=== PATIENT | female | born 1970 | race American Indian/Alaskan Native ===

== ENCOUNTER 2020-04-05 22:53 | Emergency (ER) | payer SELFPAY ==
[2020-04-05] MEDS ORDERED: ASPIRIN 325 MG TAB PO ONE (23:42)
[2020-04-06 00:56] LABS: Basophils % (Auto) 0.8 % (0.0-1.8); Eosinophils # (Auto) 0.3 K/mm3 (0.0-0.4); Eosinophils % (Auto) 4.6 % (0.0-4.3); Hematocrit 34.2 % (30.3-42.9); Hemoglobin 11.2 gm/dl (10.1-14.3); Lymphocytes # (Auto) 2.4 K/mm3 (1.2-5.4); Mean Corpuscular HGB Conc 33 % (30-34); Mean Corpuscular Volume 83 fl (79-97); Monocytes # (Auto) 0.6 K/mm3 (0.0-0.8); Monocytes % (Auto) 9.6 % (0.0-7.3); Platelet Count 183 K/mm3 (140-440); Red Blood Count 4.12 M/mm3 (3.65-5.03); Red Cell Distribution Width 16.9 % (13.2-15.2)
[2020-04-06 01:11] LABS: Blood Urea Nitrogen 11 mg/dL (7-17); Calcium 9.6 mg/dL (8.4-10.2); Hemolysis Index 2
[2020-04-06 01:19] LABS: BUN/Creatinine Ratio 16
--- NOTE | 2020-04-06 07:59 | XRay Report ---
CHEST 1 VIEW INDICATION: Chest Pain. COMPARISON: None FINDINGS: Support devices: None. Heart: Within normal limits. Lungs/Pleura: No acute air space or interstitial disease. Additional findings: None. IMPRESSION: No acute findings. Signer Name: Cezar Palomo Jr, MD Signed: 04/06/2020 7:55 AM Workstation Name: [id number]
--- NOTE | 2020-04-06 10:03 | Emergency Department Report ---
ED Chest Pain HPI - General Chief Complaint: Chest Pain Stated Complaint: CHEST PAIN AND NEED TO SEE A PSYCH DOCTOR Time Seen by Provider: 04/06/20 09:12 Source: patient Mode of arrival: Ambulatory Limitations: No Limitations - History of Present Illness Initial Comments: This is a 50-year-old -[place] female who presents to the emergency department with 2 different complaints. First, the patient complains of some midsternal and left-sided chest pain that has been going on since last night at around 7:30 PM. The midsternal pain is a burning sensation, and the left-sided pain, around the breast, is more of a stabbing pain. It is associated with some nausea, but the patient denies any fever, vomiting, back pain, shortness of breath, diaphoresis. She has not taken anything for symptoms prior to presentation. The patient says that she was just recently admitted and discharged from [facility] for multiple different issues including some shortness of breath, chest discomfort, weakness. During that work-up the patient was found to allegedly have a pulmonary embolism. The patient says that she is on a blood thinner "a pink pill", and that she has been compliant but cannot remember the name. She has a past medica l history of peptic ulcer disease, asthma and sciatica. She has not taken anything for her symptoms prior to presentation today. Secondly, the patient presents with both suicidal and homicidal ideations and "I have racing thoughts." The patient says that she was actually on her way to a psychiatric facility when she saw this hospital in the emergency department and came here for evaluation of the chest discomfort. She denies any diagnosed psychiatric conditions and is not on any medications for it. Patient says that she has a plan to step in front of a bus to harm herself. Her homicidal ideations are generalized and not directed towards any particular person or group. She denies any auditory or visual hallucinations. - Related Data Home Medications Medication Instructions Recorded Confirmed Last Taken Clopidogrel [Plavix] 75 mg PO QDAY 04/06/20 04/06/20 Unknown Allergies Allergy/AdvReac Type Severity Reaction Status Date / Time aspirin Allergy Itching Verified 04/05/20 23:42 NSAIDS (Non-Steroidal Allergy Hives Verified 04/05/20 23:41 Anti-Inflamma Heart Score - HEART Score History: Slightly suspicious EKG: Normal Age: 45-65 Risk factors: No known risk factors Troponin: < normal limit HEART Score: 1 - Critical Actions Critical Actions: 0-3 pts:0.9-1.7%risk of adverse cardiac event.Candidate for discharge ED Review of Systems ROS: Stated complaint: CHEST PAIN AND NEED TO SEE A PSYCH DOCTOR Other details as noted in HPI Comment: All other systems reviewed and negative Constitutional: denies: chills, fever Eyes: denies: eye pain, vision change ENT: denies: ear pain, throat pain Respiratory: denies: cough, shortness of breath Cardiovascular: chest pain. denies: palpitations Gastrointestinal: nausea. denies: abdominal pain, vomiting Genitourinary: denies: dysuria, discharge Musculoskeletal: denies: back pain, arthralgia Skin: denies: rash, lesions Neurological: denies: headache, weakness Psychiatric: homicidal thoughts, suicidal thoughts. denies: auditory hallucinations, visual hallucinations ED Past Medical Hx - Past Medical History Previous Medical History?: Yes Hx Asthma: Yes Additional medical history: PUD. Sciatica - Surgical History Past Surgical History?: Yes Additional Surgical History: Ovarian Cyst - Social History Smoking Status: Never Smoker Substance Use Type: None - Medications Home Medications: Home Medications Medication Instructions Recorded Confirmed Last Taken Type Clopidogrel [Plavix] 75 mg PO QDAY 04/06/20 04/06/20 Unknown History ED Physical Exam - General Limitations: No Limitations - Other Other exam information: GENERAL: The patient is well-developed well-nourished. HENT: Normocephalic. Atraumatic. Patient has moist mucous membranes. EYES: Extraocular motions are intact. NECK: Supple. Trachea is midline. CHEST/LUNGS: Clear to auscultation. There is no respiratory distress noted. There is reproducible chest pain along the midsternal to left-sided chest wall. No crepitus or deformity. HEART/CARDIOVASCULAR: Regular. There is no tachycardia. There is no murmur. ABDOMEN: Abdomen is soft, nontender. Patient has normal bowel sounds. SKIN: Skin is warm and dry. NEURO: The patient is awake, alert, and oriented. The patient is cooperative. The patient has no focal neurologic deficits. Normal speech. MUSCULOSKELETAL: There is no tenderness or deformity. There is no limitation range of motion. ED Course Vital Signs 04/05/20 04/06/20 04/06/20 23:29 09:46 10:00 Temperature 98.3 F Pulse Rate 88 73 67 Respiratory 18 11 L 12 Rate Blood Pressure 121/88 121/82 118/72 Blood Pressure [Left] O2 Sat by Pulse 100 99 99 Oximetry 04/06/20 04/06/20 04/06/20 10:16 10:30 10:46 Temperature Pulse Rate 72 73 76 Respiratory 16 13 13 Rate Blood Pressure 118/72 118/72 118/72 Blood Pressure [Left] O2 Sat by Pulse 99 99 99 Oximetry 04/06/20 04/06/20 04/06/20 11:00 11:16 11:30 Temperature Pulse Rate 70 72 74 Respiratory 14 15 13 Rate Blood Pressure 120/77 120/77 120/77 Blood Pressure [Left] O2 Sat by Pulse 100 100 100 Oximetry 04/06/20 04/06/20 04/06/20 11:37 11:42 12:00 Temperature Pulse Rate 90 70 Respiratory 18 13 12 Rate Blood Pressure 120/77 105/76 Blood Pressure [Left] O2 Sat by Pulse 100 100 Oximetry 04/06/20 04/06/20 04/06/20 12:30 13:00 13:30 Temperature Pulse Rate 78 Respiratory 13 10 L 14 Rate Blood Pressure 105/76 114/81 114/81 Blood Pressure [Left] O2 Sat by Pulse 100 100 100 Oximetry 04/06/20 04/06/20 04/06/20 14:00 15:04 15:30 Temperature Pulse Rate 77 Respiratory 12 18 Rate Blood Pressure 122/77 122/77 122/77 Blood Pressure [Left] O2 Sat by Pulse 100 100 100 Oximetry 04/06/20 04/06/20 04/06/20 16:00 16:33 19:55 Temperature 98.0 F 99.0 F Pulse Rate 77 84 Respiratory 20 16 Rate Blood Pressure 120/78 Blood Pressure 113/76 116/54 [Left] O2 Sat by Pulse 100 99 99 Oximetry 04/07/20 04/07/20 04/07/20 02:23 07:18 07:24 Temperature 99.2 F 99.4 F 99.4 F Pulse Rate 86 97 H 97 H Respiratory 18 16 16 Rate Blood Pressure 121/81 Blood Pressure 109/74 121/81 [Left] O2 Sat by Pulse 99 99 99 Oximetry - Reevaluation(s) Reevaluation #1: 04/06/20 11:55 I was able to obtain the patient's charts from [facility] from her previous inpatient visit from 04/01/20 - 04/03/20. The patient's admitting diagnosis at that time was anemia, chronic left hydrosalpinx, degenerative disc disease and an aortic mural thrombus. The CT angiography results showed moderate noncalcified mural thrombus/plaque along the right abdominal aortic lumen without aneurysm which is favored to be atherosclerotic. Patient was seen at [facility] by vascular surgery, Dr. Cleveland Loya, who felt that this was a chronic thrombus and not an unstable plaque and the patient was placed on Plavix 75 mg/day upon discharge. This is the anticoagulation that the patient references and there does not appear to be any history of a pulmonary embolism. MONTSE score - Montse Score Age > 65: (0) No Aspirin use within the Past 7 Days: (0) No 3 or more CAD Risk Factors: (0) No 2 or more Angina events in past 24 hrs: (1) Yes Known CAD with more than 50% Stenosis: (0) No Elevated Cardiac Markers: (0) No ST Deviation Greater than 0.5mm: (0) No MONTSE Score: 1 ED Medical Decision Making - Lab Data Result diagrams: 04/05/20 23:48 04/05/20 23:48 - EKG Data -: EKG Interpreted by Me EKG shows normal: sinus rhythm, axis, intervals (Prolonged [place] interval), QRS complexes, ST-T waves Rate: normal - EKG Data When compared to previous EKG there are: previous EKG unavailable Interpretation: normal EKG - Radiology Data Radiology results: image reviewed interpreted by me: Chest x-ray does not show any acute process. There are no pleural effusions, obvious pneumonia and there is no pneumothorax. No significant cardiomegaly. - Medical Decision Making This patient presents to the emergency department for 2 complaints. Patient complains of some midsternal to left-sided chest pain that has been going on since about 7:30 PM last night. However, the patient's recent records from [facility] show that she was also evaluated there for chest pain, as well as diffuse musculoskeletal pain. EKG today shows a prolonged [place] interval, but otherwise there is no morphology consistent with ST elevation myocardial infarction. Patient's labs have been mostly unremarkable including CBC, metabolic panel, negative troponins x3, blood alcohol level, and urine drug screen is only positive for marijuana. On examination she has normal sounding heart and lungs to auscultation. Chest pain is reproducible to palpation of the chest wall without any crepitus or deformity. A chest x-ray was done that shows no evidence of pneumonia, pleural effusions, pneumothorax, or any other acute process. Patient does not appear to have any risk factors for thromboembolism. She is low on the Wells score criteria and negative on the pulmonary embolism rule out criteria. On top of this, the patient recently had a CT angiography of the chest, a few days ago, that did not show any pulmonary embolism. That same CT angiography shows an aortic mural thrombus. The patient was seen by vascular surgery at that time and it was deemed to be chronic and stable and the patient was placed on Plavix, which she says she has been taking compliantly. This will be restarted for the patient. The patient is low on the heart score criteria and MONTSE score. Vital signs have been reassuring throughout her ED course. The patient's contact information has been sent over to the [facility] and someone from their office should be contacting her for close outpatient follow-up as part of our [facility] low risk chest pain protocol. The second issue is the patient's need for a mental health evaluation. Patient complains of racing thoughts, hallucinations, and both suicidal and homicidal ideations. For this reason she has been made a 1013. The patient does not have any emergent medical condition that would preclude her from psychiatric treatment or inpatient stabilization. The patient will be seen by the psychiatric assessment team for further disposition. Critical Care Time: No Critical care attestation.: If time is entered above; I have spent that time in minutes in the direct care of this critically ill patient, excluding procedure time. ED Disposition Clinical Impression: Suicidal ideations, Homicidal ideations, Atypical chest pain Disposition: [id number]/[id number] PSY HOSP/PSY UNIT Is pt being admited?: No Condition: Stable Instructions: Chest Pain (ED) Time of Disposition: 15:53
[2020-04-06] MEDS: LIDOCAINE VISCOUS 2% 15 ML ORAL LIQD PO ONE ×2 (11:37→12:08)
[2020-04-06] MEDS: ALUM-MAG HYDROXIDE-SIMETHICONE 200-200-20MG/5ML ORAL LIQD 30 ML PO ONE ×2 (11:37→12:07)
[2020-04-06] MEDS ORDERED: CYCLOBENZAPRINE 10 MG TAB PO ONE (13:52)
[2020-04-06 15:33] LABS: Amphetamine Screen,Urine Negative; Benzodiazepines Screen,Urine Negative; Cocaine Screen,Urine Negative; Methadone Screen,Urine Negative; Opiate Screen,Urine Negative
[2020-04-06 15:35] LABS: Bilirubin,Urine NEG (Negative); Blood,Urine NEG (Negative); Color,Urine Yellow (Yellow); Protein,Urine <15 mg/dL mg/dL (Negative); Urobilinogen,Urine < 2.0 mg/dL (<2.0)
[2020-04-06 15:55] LABS: Cannabinoid Screen,Urine Positive
[2020-04-06] MEDS ORDERED: CLOPIDOGREL 75 MG TAB PO ONE (16:10)
[2020-04-06] MEDS ORDERED: CLOPIDOGREL 75 MG TAB ONE (18:43)
[2020-04-07] MEDS ORDERED: ACETAMINOPHEN 500 MG TAB PO ONE (07:35)
[2020-04-07] MEDS ORDERED: MAGNESIUM HYDROXIDE (MOM) ORAL LIQD UDC PO PRN (07:35)
[2020-04-07] MEDS ORDERED: ALUM-MAG HYDROXIDE-SIMETHICONE 200-200-20MG/5ML ORAL LIQD 30 ML PO PRN (07:35)
[2020-04-07] MEDS ORDERED: ACETAMINOPHEN 325 MG TAB PO PRN (07:35)
--- NOTE | 2020-04-07 09:50 | Consultation ---
History of Present Illness - Reason for Consult Consult date: 04/07/20 Reason for consult: MHE Requesting physician: INDERJIT SHELTON - History of Present Psychiatric Illness Per ED Provider: First, the patient complains of some midsternal and left-sided chest pain that has been going on since last night at around 7:30 PM. The midsternal pain is a burning sensation, and the left-sided pain, around the breast, is more of a stabbing pain. It is associated with some nausea, but the patient denies any fever, vomiting, back pain, shortness of breath, diaphoresis. She has not taken anything for symptoms prior to presentation. The patient says that she was just recently admitted and discharged from [facility] for multiple different issues including some shortness of breath, chest discomfort, weakness. During that work-up the patient was found to allegedly have a pulmonary embolism. The patient says that she is on a blood thinner "a pink pill", and that she has been compliant but cannot remember the name. She has a past medical history of peptic ulcer disease, asthma and sciatica. She has not taken anything for her symptoms prior to presentation today. Secondly, the patient presents with both suicidal and homicidal ideations and "I have racing thoughts." The patient says that she was actually on her way to a psychiatric facility when she saw this hospital in the emergency department and came here for evaluation of the chest discomfort. She denies any diagnosed psychiatric conditions and is not on any medications for it. Patient says that she has a plan to step in front of a bus to harm herself. Her homicidal ideations are generalized and not directed towards any particular person or group. She denies any auditory or visual hallucinations. PSYCH HPI Patient is a 50-year-old, single, with unspecified employment status and living situation and no significant past psychiatric history who presented to the ED with multiple complaints and also for mental health evaluation. Patient appears guarded, very irritable she states that she is from [place] and she does not want to tell me anything else besides that, when asked why she moved to [place] patient refused to answer patient states she currently stays in a hotel, patient also informing the reason why she is in hospital is because of [place] that so far [place] have not been nice to her. 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 When asked patient for history of illegal drug use patient says she does not want tell me because it she tells me she will implicate me, patient states that I am not asking the right question and would like a second evaluation. Patient was insulting, calling me names, was loud and verbally threatened to knock me out. IM medication orders was placed with recommendation for seclusion at the patient's mood is currently stable. Patient states that she is suicidal and homicidal PAST PSYCHIATRIC HISTORY Diagnoses: Unspecified Suicide attempts or Self-harm behavior: No response Prior psychiatric hospitalizations: No response Substance Abuse history: No response Previous psychiatric medications tried: No response Outpatient treatment: None response PAST MEDICAL HISTORY: Unknown Family Psychiatric History: None reported or documented SOCIAL HISTORY Marital Status: Single Living Arrangements: Currently in a hotel Employment Status: Employed in [employer] Access to guns/weapons: No response Education: College dropout History of Abuse: No response Legal History: No response REVIEW OF SYSTEMS Constitutional: Negative for weight loss ENT: Negative for stridor Respiratory: Negative for cough or hemoptysis All other systems reviewed and are negative MENTAL STATUS EXAMINATION General Appearance and Behavior: Age appropriate, good hygiene, not wearing appropriate clothes, good eye contact, uncooperative and irritable with questioning. Cooperation: Disengaged, Psychomotor Behavior: Psychomotor agitation Mood: No response Affect and affective range: euthymic, euphoric Thought Process:Circumstantial, Illogical, Thought Content: Flight of ideas, Illogical, Grandiose, Speech: pressured, loud volume at times Intellectual Functioning: Average Suicidal Ideation: Suicidal Homicidal Ideation: Homicidal Impulse Control: Impaired Insight and Judgment: Limited insight and judgment Memory: Normal, Attention: Divided attention impaired Orientation: Alert, oriented, Diagnoses: Assessment and Plan - Psychiatric problem (1) Bipolar 1 disorder with moderate marcel Current Visit: Yes Status: Acute Treatment Plan MEDICATIONS: We will start patient on iron medication for now Risks, benefits and alternatives of medications discussed with the patient, questions answered and consent obtained from patient. PSYCHOTHERAPY: Supportive psychotherapy provided MEDICAL: Per primary team DELIRIUM PRECAUTIONS: Please re-orient patient frequently, keep lights on during the day, and minimize benzodiazepines and opiates as these medications could worsen patient's confusion. PRINCIPAL STATISTICAL PROGRAMMER: DISPOSITION: [facility] acute inpatient psychiatric hospitalization at this time LEGAL STATUS: 1013 FOLLOW-UP: Will follow Thank you for the consult. Please contact with any questions and/or concerns. Medications and Allergies Allergies Allergy/AdvReac Type Severity Reaction Status Date / Time aspirin Allergy Itching Verified 04/05/20 23:42 NSAIDS (Non-Steroidal Allergy Hives Verified 04/05/20 23:41 Anti-Inflamma Home Medications Medication Instructions Recorded Confirmed Last Taken Type Clopidogrel [Plavix] 75 mg PO QDAY 04/06/20 04/06/20 Unknown History Active Meds: Active Medications Acetaminophen (Tylenol) 650 mg PO Q4HR PRN PRN Reason: Pain MILD(1-3)/Fever >100.5/CHOWDARY Al Hydrox/Mg Hydrox/Simethicone (Alum-Mag Hydrox-Simeth [id number]/5ml) 30 ml PO Q4HR PRN PRN Reason: Indigestion Magnesium Hydroxide (Milk Of Magnesia) 30 ml PO Q12HR PRN PRN Reason: Constipation Mental Status Exam - Vital signs Last Vital Signs Temp 99.4 F 04/07/20 07:24 Pulse 97 H 04/07/20 07:24 Resp 16 04/07/20 07:24 BP 121/81 04/07/20 07:24 Pulse Ox 99 04/07/20 07:24 Results Result Diagrams: 04/05/20 23:48 04/05/20 23:48 Abnormal lab results 04/06/20 Range/Units Unknown Urine pH 9.0 H (5.0-7.0) All other labs normal. Assessment and Plan - Psychiatric problem (1) Bipolar 1 disorder with moderate marcel Current Visit: Yes Status: Acute
[2020-04-07] MEDS ORDERED: CLOPIDOGREL 75 MG TAB PO SCH (11:00)
[2020-04-07] MEDS ORDERED: ZIPRASIDONE MESYLATE 20 MG VIAL IM SCH (12:00)
[2020-04-07] MEDS ORDERED: VALPROIC ACID 250 MG CAP PO SCH (14:00)
[2020-04-07 22:34] VITALS: BP 116/79
== END 2020-04-07 20:00 ==
LOC: ED 22:53
DX: R45.850 Homicidal ideations (principal); R45.851 Suicidal ideations; R07.89 Other chest pain; J45.909 Unspecified asthma, uncomplicated; Z79.899 Other long term (current) drug therapy; Z88.6 Allergy status to analgesic agent; Z88.8 Allergy status to other drugs, medicaments and biological substances; Z98.890 Other specified postprocedural states
CPT/HCPCS: 36415; 71045; 80048; 80307; 81001; 84484; 84703; 85025; 93005; 96372; 99285; J3486; 80320; G0480